=== PATIENT | male | born 1985 | race African-American/Black ===

== ENCOUNTER 2022-07-20 19:02 | Emergency (ER) | payer MEDICAID ==
[~2022-07-20] VITALS: Ht 177.8 cm; Wt 63.0 kg
[2022-07-20 19:07] VITALS: BP 136/91
[2022-07-20] MEDS ORDERED: TETANUS, DIPHTHERIA, PERTUSSIS VAC/PF 0.5ML (>10YR OLD) IM ONE (20:30)
== END 2022-07-20 23:40 | disposition home or self-care (01) ==
LOC: ER 19:16
DX: S01.91XA Laceration without foreign body of unspecified part of head, initial encounter (principal); R51.9 Headache, unspecified; X58.XXXA Exposure to other specified factors, initial encounter; Y93.89 Activity, other specified; Y92.89 Other specified places as the place of occurrence of the external cause; Y99.8 Other external cause status
CPT/HCPCS: 12002; 70450; 90471; 90715; 99285; Z7610

== ENCOUNTER 2022-08-01 16:38 | Emergency (ER) | payer MEDICAID ==
[~2022-08-01] VITALS: Ht 177.8 cm; Wt 69.0 kg
[2022-08-01 17:28] VITALS: BP 141/97
== END 2022-08-01 22:17 | disposition left against medical advice (07) ==
LOC: ER 16:38
DX: Z53.21 Procedure and treatment not carried out due to patient leaving prior to being seen by health care provider (principal)

== ENCOUNTER 2022-08-02 17:40 | Emergency (ER) | payer MEDICAID ==
[~2022-08-02] VITALS: Ht 177.8 cm; Wt 69.0 kg
[2022-08-02 17:53] VITALS: BP 128/80
== END 2022-08-02 18:54 | disposition home or self-care (01) ==
LOC: ER 17:40
DX: Z48.02 Encounter for removal of sutures (principal)
CPT/HCPCS: 99281; Z7610

== ENCOUNTER 2022-08-20 18:20 | Emergency (ER) | payer MEDICAID ==
[~2022-08-20] VITALS: Ht 177.8 cm; Wt 70.0 kg
[2022-08-20 18:30] VITALS: BP 126/85
== END 2022-08-20 18:57 | disposition left against medical advice (07) ==
LOC: ER 18:20
DX: Z53.21 Procedure and treatment not carried out due to patient leaving prior to being seen by health care provider (principal)

== ENCOUNTER 2022-08-31 06:40 | Emergency (ER) | payer MEDICAID, OTHER ==
[~2022-08-31] VITALS: Ht 182.9 cm; Wt 100.0 kg
[2022-08-31] MEDS ORDERED: SODIUM CHLORIDE 0.9% 1,000 ML IV ONE (06:45)
[2022-08-31 08:18] LABS: BG BASE EXCESS 0.5 mmol/L (-2.0-2.0); BG CARBOXYHEMOGLOBIN 2.2 % (0.5-1.5); BG DEOXYHEMOGLOBIN 6.8 % (0.0-5.0); BG FRACTION INSPIRED OXYGEN 21; BG HCO3 ACT 26.9 mmol/L (22.0-26.0); BG METHEMOGLOBIN 0.4 % (0.0-1.5); BG OXYHEMOGLOBIN 90.6 % (94.0-97.0); BG PCO2 49.9 mmHg (35.0-45.0); BG PO2 68.9 mmHg (75.0-100.0); BG SAMPLE SITE RIGHT BRACHIAL; BG TOTAL HEMOGLOBIN 15.1 g/dL (12.0-18.0); BG VENT MODE ROOM AIR
[2022-08-31 11:14] LABS: BASOPHILS % 0.2 % (0.0-2.0); EOSINOPHILS % 0.4 % (0.0-5.0); HEMATOCRIT. 46.3 % (42.0-52.0); HEMOGLOBIN. 15.4 g/dL (14.0-18.0); LYMPHOCYTES % 12.9 % (20.0-50.0); MEAN CORPUSCULAR HEMOGLOBIN 28.7 pg (28.0-32.0); MEAN CORPUSCULAR VOLUME 86.4 fL (80.0-94.0); NEUTROPHILS % 80.5 % (40.0-76.0); PLATELET 248 x1000/uL (130-400); RED BLOOD CELL COUNT 5.35 mill/uL (4.7-6.1); RED CELL DISTRIBUTION WIDTH 14.2 % (11.6-14.6)
[2022-08-31 11:14] LABS: CLARITY URINE CLEAR (CLEAR); COLOR URINE YELLOW (YELLOW); KETONES URINE TRACE (NEGATIVE); LEUKOCYTE ESTERASE URINE NEGATIVE (NEGATIVE); NITRITE URINE NEGATIVE (NEGATIVE); OCCULT BLOOD URINE NEGATIVE (NEGATIVE); PROTEIN URINE 1+ (NEGATIVE); SPECIFIC GRAVITY URINE 1.013 (1.005-1.030); UROBILINOGEN URINE 0.2 E.U./dL (0.2-1.0)
[2022-08-31] MEDS ORDERED: DEXTROSE 50% WATER 50ML SYRINGE IV ONE (11:15)
[2022-08-31 11:23] LABS: CHLORIDE 105 mEq/L (98-107)
[2022-08-31 11:39] LABS: CREATINE KINASE 533 IU/L (39-308); ETHANOL BLOOD < 10 mg/dL
[2022-08-31 12:07] LABS: *AMPHETAMINES SCREEN URINE PRESUMTIVE POSITIVE (NEGATIVE); *BARBITURATES SCREEN URINE NEGATIVE (NEGATIVE); *BENZODIAZEPINES SCREEN URINE PRESUMTIVE POSITIVE (NEGATIVE); *COCAINE SCREEN URINE NEGATIVE (NEGATIVE); CANNABINOID URINE SCREEN PRESUMTIVE POSITIVE (NEGATIVE); METHADONE URINE SCREEN NEGATIVE (NEGATIVE); OPIATES URINE SCREEN NEGATIVE (NEGATIVE); PHENCYCLIDINE URINE SCREEN NEGATIVE (NEGATIVE)
[2022-09-01 06:00] VITALS: BP 139/80
== END 2022-09-01 12:18 ==
LOC: ER 06:48
DX: S00.83XA Contusion of other part of head, initial encounter (principal); R45.1 Restlessness and agitation; R46.2 Strange and inexplicable behavior; Z20.822 Contact with and (suspected) exposure to COVID-19; Y35.893A Legal intervention involving other specified means, suspect injured, initial encounter; R00.0 Tachycardia, unspecified; F31.81 Bipolar II disorder; F16.10 Hallucinogen abuse, uncomplicated; F13.10 Sedative, hypnotic or anxiolytic abuse, uncomplicated; F12.10 Cannabis abuse, uncomplicated; F15.10 Other stimulant abuse, uncomplicated; Y93.89 Activity, other specified; R94.31 Abnormal electrocardiogram [ECG] [EKG]; R74.9 Abnormal serum enzyme level, unspecified; M47.892 Other spondylosis, cervical region; Z65.3 Problems related to other legal circumstances; Z91.041 Radiographic dye allergy status; Y92.89 Other specified places as the place of occurrence of the external cause
CPT/HCPCS: 36415; 36600; 70450; 72125; 80053; 80305; 80307; 80320; 80329; 81003; 82375; 82550; 82805; 82962; 84443; 84484; 85025; 87426; 93005; 96374; 99285; C9803; J7030; Z7610; G0480